=== PATIENT | female | born 1995 | race Caucasian/White ===

== ENCOUNTER 2020-07-11 14:43 | Outpatient (CLI) | payer OTHER | END 2020-07-11 16:39 | disposition home or self-care (01) | LOC: GENOP 14:43 | DX: O21.2 Late vomiting of pregnancy (principal); O99.891 Other specified diseases and conditions complicating pregnancy; R19.7 Diarrhea, unspecified; M54.5 Low back pain; R10.9 Unspecified abdominal pain; O99.512 Diseases of the respiratory system complicating pregnancy, second trimester; J45.909 Unspecified asthma, uncomplicated; O99.352 Diseases of the nervous system complicating pregnancy, second trimester; G40.909 Epilepsy, unspecified, not intractable, without status epilepticus; Z3A.25 25 weeks gestation of pregnancy; Z98.890 Other specified postprocedural states | CPT/HCPCS: 96360; 96374; J2405; J7120 ==

== ENCOUNTER 2020-10-12 13:13 | Outpatient (CLI) | payer OTHER ==
[2020-10-12 14:12] LABS: HEMOGLOBIN 10.9 gm/dl (12.3-15.3); RED BLOOD COUNT 3.74 M/UL (4.00-5.10); WHITE BLOOD COUNT 10.1 K/UL (4.5-11.0)
== END 2020-10-12 14:14 | disposition home or self-care (01) ==
LOC: GENOP 13:13
PROVIDERS: Obstetrics & Gynecology
DX: Z01.812 Encounter for preprocedural laboratory examination (principal)
CPT/HCPCS: 81001; 85025; U0003

== ENCOUNTER 2020-10-15 05:24 | Inpatient (IN) | payer OTHER ==
[~2020-10-15] VITALS: Ht 149.9 cm; Wt 98.0 kg
[2020-10-15] MEDS ORDERED: PRENATABS RX T1 EACH PO (06:11)
[2020-10-15] MEDS ORDERED: IBUPROFEN600 MG PO (09:30)
[2020-10-15] MEDS ORDERED: COLACE 100MG C100 MG PO (09:30)
[2020-10-15] MEDS ORDERED: HYDROCODON-ACE1 EAC6 PO (09:30)
[2020-10-16 06:15] LABS: HEMOGLOBIN 9.2 gm/dl (12.3-15.3)
== END 2020-10-17 16:16 | disposition home or self-care (01) | DRG 788 ==
LOC: OB 05:24
PROVIDERS: ADMIT Obstetrics & Gynecology
PROC: 4A1HXCZ Monitoring of Products of Conception, Cardiac Rate, External Approach (ICD-10-PCS; 2020-10-15)
PROC: 10D00Z1 Extraction of Products of Conception, Low, Open Approach (ICD-10-PCS; principal; 2020-10-15 08:15)
DX: O99.354 Diseases of the nervous system complicating childbirth (principal); Z3A.39 39 weeks gestation of pregnancy; Z37.0 Single live birth; Z20.822 Contact with and (suspected) exposure to COVID-19; G40.909 Epilepsy, unspecified, not intractable, without status epilepticus; O99.52 Diseases of the respiratory system complicating childbirth; J45.909 Unspecified asthma, uncomplicated; Z90.49 Acquired absence of other specified parts of digestive tract
CPT/HCPCS: 36415; 81001; 82800; 85014; 85018; 85025; C9113; J0690; J1650; J1885; J2274; J2405; J2590; J3010; J7120; U0003